=== PATIENT | female | born 1965 | race Caucasian/White ===

== ENCOUNTER 2021-11-30 17:49 | Inpatient (IN) ==
[2021-12-02] MEDS: levETIRAcetam 250 MG TABLET PO SCH ×3 (04:23→15:47)
[2021-12-02 07:10] LABS: Basophils % 0.4 %; Eosinophils # 0.1 K/mcL (0.0-0.6); Eosinophils % 1.8 %; Hematocrit 30.6 % (35.3-44.9); Hemoglobin 9.3 g/dL (11.5-15.4); Immature Granulocytes % 0.4 % (0-4); Lymphocytes % 27.3 %; Mean Corpuscular HGB Conc 30.4 g/dL (31.6-35.5); Mean Corpuscular Hemoglobin 31.8 pg (28.0-33.3); Mean Corpuscular Volume 104.8 fL (83.0-100.0); Mean Platelet Volume 8.9 fL (9.4-12.4); Monocytes # 0.7 K/mcL (0.0-1.3); Monocytes % 9.8 %; Neutrophils # 4.3 K/mcL (1.6-8.9); Platelet Count 381 K/mcL (140-400); Red Blood Count 2.92 M/mcL (3.82-4.97); Red Cell Distribution Width 13.2 % (11.5-14.5); Segmented Neutrophils % 60.3 %; White Blood Count 7.1 K/mcL (4.3-11.1)
[2021-12-02] MEDS: Aspirin 81 MG TAB.CHEW PO SCH (08:16)
[2021-12-02] MEDS: Loratadine 10 MG TABLET PO SCH (08:17)
[2021-12-02] MEDS: Multivit/Ca/Min/Fe/FA 1 TAB TABLET PO SCH (08:17)
[2021-12-02] MEDS: atenoloL 25 MG TABLET PO SCH (08:17)
[2021-12-02 12:02] LABS: Calcium 8.9 mg/dL (8.6-10.3); Potassium 5.5 mEq/L (3.5-5.1)
[2021-12-02] MEDS: Acetaminophen 325 MG TABLET PO PRN ×2 (15:47→22:50)
[2021-12-03] MEDS: levETIRAcetam 250 MG TABLET PO SCH ×2 (05:19→16:54)
[2021-12-03] MEDS: atenoloL 25 MG TABLET PO SCH (07:25)
[2021-12-03] MEDS: Multivit/Ca/Min/Fe/FA 1 TAB TABLET PO SCH (07:25)
[2021-12-03] MEDS: Aspirin 81 MG TAB.CHEW PO SCH (07:25)
[2021-12-03] MEDS: Loratadine 10 MG TABLET PO SCH (07:25)
[2021-12-03] MEDS: Acetaminophen 325 MG TABLET PO PRN ×2 (07:25→20:02)
[2021-12-03 08:24] LABS: Calcium 9.2 mg/dL (8.6-10.3); Potassium 4.2 mEq/L (3.5-5.1)
[2021-12-04] MEDS: levETIRAcetam 250 MG TABLET PO SCH ×2 (04:34→16:43)
[2021-12-04] MEDS: Acetaminophen 325 MG TABLET PO PRN ×2 (09:29→15:29)
[2021-12-04] MEDS: Aspirin 81 MG TAB.CHEW PO SCH (09:30)
[2021-12-04] MEDS: Multivit/Ca/Min/Fe/FA 1 TAB TABLET PO SCH (09:32)
[2021-12-04] MEDS: Loratadine 10 MG TABLET PO SCH (09:32)
[2021-12-04] MEDS: atenoloL 25 MG TABLET PO SCH (09:32)
[2021-12-05] MEDS: levETIRAcetam 250 MG TABLET PO SCH ×2 (06:08→17:22)
[2021-12-05] MEDS: Aspirin 81 MG TAB.CHEW PO SCH (10:07)
[2021-12-05] MEDS: atenoloL 25 MG TABLET PO SCH (10:07)
[2021-12-05] MEDS: Multivit/Ca/Min/Fe/FA 1 TAB TABLET PO SCH (10:07)
[2021-12-05] MEDS: Loratadine 10 MG TABLET PO SCH (10:08)
[2021-12-05] MEDS: Acetaminophen 325 MG TABLET PO PRN (17:03)
[2021-12-06] MEDS: levETIRAcetam 250 MG TABLET PO SCH ×2 (07:05→18:10)
[2021-12-06 08:36] LABS: Calcium 9.2 mg/dL (8.6-10.3); Potassium 4.9 mEq/L (3.5-5.1)
[2021-12-06] MEDS: atenoloL 25 MG TABLET PO SCH (09:38)
[2021-12-06] MEDS: Loratadine 10 MG TABLET PO SCH (09:38)
[2021-12-06] MEDS: Multivit/Ca/Min/Fe/FA 1 TAB TABLET PO SCH (09:38)
[2021-12-06] MEDS: Aspirin 81 MG TAB.CHEW PO SCH (09:38)
[2021-12-06] MEDS: Acetaminophen 325 MG TABLET PO PRN (14:55)
[2021-12-07] MEDS: levETIRAcetam 250 MG TABLET PO SCH ×2 (05:58→16:31)
[2021-12-07] MEDS: atenoloL 25 MG TABLET PO SCH (08:35)
[2021-12-07] MEDS: Loratadine 10 MG TABLET PO SCH (08:35)
[2021-12-07] MEDS: Aspirin 81 MG TAB.CHEW PO SCH (08:35)
[2021-12-07] MEDS: Multivit/Ca/Min/Fe/FA 1 TAB TABLET PO SCH (08:35)
[2021-12-07] MEDS: Acetaminophen 325 MG TABLET PO PRN ×2 (16:31→22:27)
[2021-12-08] MEDS: levETIRAcetam 250 MG TABLET PO SCH ×2 (05:04→16:53)
[2021-12-08] MEDS: Multivit/Ca/Min/Fe/FA 1 TAB TABLET PO SCH (07:50)
[2021-12-08] MEDS: Loratadine 10 MG TABLET PO SCH (07:50)
[2021-12-08] MEDS: atenoloL 25 MG TABLET PO SCH (07:51)
[2021-12-08] MEDS: Aspirin 81 MG TAB.CHEW PO SCH (07:51)
[2021-12-08] MEDS ORDERED: Acetaminophen 325 MG TABLET PO PRN (23:19)
[2021-12-09] MEDS: levETIRAcetam 250 MG TABLET PO SCH ×2 (06:55→17:34)
[2021-12-09 08:02] LABS: Calcium 9.2 mg/dL (8.6-10.3); Potassium 4.4 mEq/L (3.5-5.1)
[2021-12-09] MEDS: Aspirin 81 MG TAB.CHEW PO SCH (08:23)
[2021-12-09] MEDS: Acetaminophen 325 MG TABLET PO PRN (08:24)
[2021-12-09] MEDS: Multivit/Ca/Min/Fe/FA 1 TAB TABLET PO SCH (08:24)
[2021-12-09] MEDS: Loratadine 10 MG TABLET PO SCH (08:24)
[2021-12-09] MEDS: atenoloL 25 MG TABLET PO SCH (08:24)
[2021-12-09] MEDS ORDERED: Acetaminophen 325 MG TABLET PO PRN (20:33)
[2021-12-10 06:41] VITALS: BP 104/66; PULSE 56; RESP 12; TEMP 97.4; O2SAT 95
[2021-12-10] MEDS: levETIRAcetam 250 MG TABLET PO SCH ×2 (06:52→17:22)
[2021-12-10] MEDS: Loratadine 10 MG TABLET PO SCH (09:08)
[2021-12-10] MEDS: atenoloL 25 MG TABLET PO SCH (09:08)
[2021-12-10] MEDS: Multivit/Ca/Min/Fe/FA 1 TAB TABLET PO SCH (09:08)
[2021-12-10] MEDS: Aspirin 81 MG TAB.CHEW PO SCH (09:08)
== END 2021-12-10 19:35 | disposition home or self-care (01) | DRG 683 ==
LOC: INPPIK 12-02 03:50
PROVIDERS: ADMIT Internal Medicine; ATTEND Internal Medicine